=== PATIENT | male | born 1985 | race Caucasian/White ===

== ENCOUNTER → 2018-09-12 | Outpatient (CLI) | payer SELFPAY ==
[~2018-09-12] MED LIST: SUBOXONE 4 MG-1 EACH PO; TOBRADEX 0.1%-0.5 ML OPH; TRAMADOL HCL50 MG PO; VOLTAREN50 M1 PO
== END | disposition home or self-care (01) ==
LOC: MRI 13:52
DX: M50.222 Other cervical disc displacement at C5-C6 level (principal); M48.02 Spinal stenosis, cervical region; M75.102 Unspecified rotator cuff tear or rupture of left shoulder, not specified as traumatic